=== PATIENT | male | born 1980 | race Caucasian/White ===

== ENCOUNTER 2017-03-17 22:09 | Emergency (ER) | payer BC, OTHER ==
--- NOTE | 2017-03-17 22:34 | EDM.PDOC ---
ED HPI GENERAL MEDICAL PROBLEM - General Chief Complaint: Chest Pain Stated Complaint: PT HAS CHEST PAINS Time Seen by Provider: 03/17/17 22:30 - History of Present Illness INITIAL COMMENTS - FREE TEXT/NARRATIVE: HISTORY AND PHYSICAL: History of present illness: Patient 37-year-old white male presents with a concern of chest pain this is vaguely described he states was some associated shortness of breath this was relatively brief and is resolved he's had this off-and-on for 4 years he denies drug or alcohol abuse Review of systems: As per history of present illness and below otherwise all systems reviewed and negative. Past medical history: As per history of present illness and as reviewed below otherwise noncontributory. Surgical history: As per history of present illness and as reviewed below otherwise noncontributory. Social history: No reported history of drug or alcohol abuse. Family history: As per history of present illness and as reviewed below otherwise noncontributory. Physical exam: HEENT: Atraumatic, normocephalic, pupils reactive, negative for conjunctival pallor or scleral icterus, mucous membranes moist, throat clear, neck supple, nontender, trachea midline. Lungs: Clear to auscultation, breath sounds equal bilaterally, chest nontender. Heart: S1S2, regular, negative for clicks, rubs, or JVD. Abdomen: Soft, nondistended, nontender. Negative for masses or hepatosplenomegaly. Negative for costovertebral tenderness. Pelvis: Stable nontender. Genitourinary: Deferred. Rectal: Deferred. Extremities: Atraumatic, negative for cords or calf pain. Neurovascular unremarkable. Neuro: Awake, alert, oriented. Cranial nerves II through XII unremarkable. Cerebellum unremarkable. Motor and sensory unremarkable throughout. Exam nonfocal. Diagnostics: Chest x-ray EKG pulse oximetry quality assurance monitor Therapeutics: None Impression: #1 atypical chest pain Definitive disposition and diagnosis as appropriate pending reevaluation and review of above. right chest Pain Score (Numeric/FACES): 5 - Related Data Allergies Allergy/AdvReac Type Severity Reaction Status Date / Time No Known Allergies Allergy Verified 03/17/17 22:21 Home Meds: Home Meds Divalproex Sodium [Divalproex Sodium ER] 500 mg PO BEDTIME 03/17/17 [History] OLANZapine [Olanzapine Odt] 10 mg PO BEDTIME 03/17/17 [History] Sertraline HCl 50 mg PO DAILY 03/17/17 [History] Past Medical History - Past Health History Medical/Surgical History: Denies Medical/Surgical History Psychiatric History: Reports: Anxiety, Depression Social & Family History - Family History Family Medical History: Noncontributory - Tobacco Use Smoking Status *Q: Current Every Day Smoker Years of Tobacco use: 19 Packs/Tins Daily: 1 - Alcohol Use Days Per Week of Alcohol Use: 0 - Recreational Drug Use Recreational Drug Use: No ED ROS GENERAL - Review of Systems Review Of Systems: ROS reveals no pertinent complaints other than HPI. ED EXAM, GENERAL - Physical Exam Exam: See Below (See dictated) Course - Vital Signs Last Recorded V/S: Last Vital Signs Temp 36.8 C 03/17/17 22:09 Pulse 91 03/17/17 22:09 Resp 18 03/17/17 22:09 BP 145/88 H 03/17/17 22:09 Pulse Ox 94 L 03/17/17 22:09 - Orders/Labs/Meds Orders: Active Orders 24 hr Category Date Time Status EKG 12 Lead [EKG Documentation Completion] [RC] STAT Care 03/17/17 22:30 Active Chest 1V Frontal [CR] Stat Exams 03/17/17 22:22 Ordered Departure - Departure Time of Disposition: 22:33 Disposition: Home, Self-Care 01 Condition: Good Clinical Impression: Atypical chest pain - Discharge Information Referrals: PCP,None [Primary Care Provider] - Additional Instructions: The following information is given to patients seen in the emergency department who are being discharged to home. This information is to outline your options for follow-up care. We provide all patients seen in our emergency department with a follow-up referral. The need for follow-up, as well as the timing and circumstances, are variable depending upon the specifics of your emergency department visit. If you don't have a primary care physician on staff, we will provide you with a referral. We always advise you to contact your personal physician following an emergency department visit to inform them of the circumstance of the visit and for follow-up with them and/or the need for any referrals to a consulting specialist. The emergency department will also refer you to a specialist when appropriate. This referral assures that you have the opportunity for followup care with a specialist. All of these measure are taken in an effort to provide you with optimal care, which includes your followup. Under all circumstances we always encourage you to contact your private physician who remains a resource for coordinating your care. When calling for followup care, please make the office aware that this follow-up is from your recent emergency room visit. If for any reason you are refused follow-up, please contact the [facility] emergency department at and asked to speak to the emergency department charge nurse. [facility] [address] [place] [id number] Follow primary medical doctor and/or clinic above is discussed return as needed as discussed - My Orders Last 24 Hours: My Active Orders 03/17/17 22:22 Chest 1V Frontal [CR] Stat 03/17/17 22:30 EKG 12 Lead [EKG Documentation Completion] [RC] STAT - Assessment/Plan Last 24 Hours: My Active Orders 03/17/17 22:22 Chest 1V Frontal [CR] Stat 03/17/17 22:30 EKG 12 Lead [EKG Documentation Completion] [RC] STAT
[2017-03-17 23:28] VITALS: BP 124/80
--- NOTE | 2017-03-20 10:42 | CR ---
EXAM DATE: 03/17/17 PATIENT'S AGE: 37 Patient: ZARINA PETTY Facility: [place], [place] Site . Site : 1980 Study: XRay Chest [id number]/10/2017 10:47:39 PM Ordering Physician: Doctor Heller Final Report: HISTORY: Chest pain and shortness of breath. FINDINGS: AP portable chest radiograph demonstrates EKG leads overlying the thorax. The cardiac silhouette is normal. Pulmonary vasculature and shanelle are normal. No consolidation or pleural effusion is seen. Bony structures normal. IMPRESSION: No acute cardiopulmonary disease. Dictated by Ana Gilliland MD @ 03/17/2017 10:57:01 PM Dictated by: Ana Gilliland MD @ 03/17/2017 22:57:05 (Electronic Signature) Report Signed by Proxy. [email or web address]
== END 2017-03-17 23:19 | disposition home or self-care (01) ==
LOC: MW.ED 22:09
DX: R07.89 Other chest pain (principal); F17.210 Nicotine dependence, cigarettes, uncomplicated; F32.9 Major depressive disorder, single episode, unspecified; Z79.899 Other long term (current) drug therapy
CPT/HCPCS: 71010; 71010-26; 93005; 99283; 99285-25

== ENCOUNTER 2017-07-22 17:34 | Emergency (ER) | payer OTHER ==
[2017-07-22] MEDS ORDERED: Ondansetron 4 MG/2 ML SDV IVPUSH ONE (17:58)
[2017-07-22] MEDS ORDERED: Sodium Chloride 0.9% 1,000 ML IV ONE (17:58)
[2017-07-22] MEDS ORDERED: diphenhydrAMINE 50 MG/ML SDV IVPUSH ONE (17:58)
[2017-07-22] MEDS ORDERED: Ketorolac 30 MG/ML SDV IVPUSH ONE (17:58)
[2017-07-22] MEDS ORDERED: Metoclopramide 10 MG/2 ML SDV IV ONE (17:58)
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
[2017-07-22 18:55] LABS: CHLORIDE,CL 104 mmol/L (98-107); SODIUM,NA 139 mmol/L (136-148)
[2017-07-22 19:09] VITALS: BP 149/102
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
== END 2017-07-22 19:40 | disposition home or self-care (01) ==
LOC: MW.ED 17:34
DX: S06.0X9A Concussion with loss of consciousness of unspecified duration, initial encounter (principal); G43.909 Migraine, unspecified, not intractable, without status migrainosus; F32.9 Major depressive disorder, single episode, unspecified; F41.9 Anxiety disorder, unspecified; Z79.899 Other long term (current) drug therapy; F17.210 Nicotine dependence, cigarettes, uncomplicated; V89.2XXA Person injured in unspecified motor-vehicle accident, traffic, initial encounter
CPT/HCPCS: 70450; 80053; 85025; 93005; 96361; 96374; 96375; 99284; J1200; J1885; J2405; J2765; J7040

== ENCOUNTER 2019-03-09 12:12 | Emergency (ER) | payer OTHER ==
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
[2019-03-09] MEDS ORDERED: Ketorolac 60 MG/2 ML SDV IM ONE (13:22)
[2019-03-09 13:59] VITALS: BP 145/90; PULSE 78
== END 2019-03-09 14:06 | disposition home or self-care (01) ==
LOC: MW.ED 12:12
DX: M54.2 Cervicalgia (principal); F41.9 Anxiety disorder, unspecified; F32.9 Major depressive disorder, single episode, unspecified; F17.210 Nicotine dependence, cigarettes, uncomplicated; Z79.899 Other long term (current) drug therapy; V89.2XXA Person injured in unspecified motor-vehicle accident, traffic, initial encounter
CPT/HCPCS: 70450; 72125; 96372; 99284; J1885; 99283

== ENCOUNTER 2019-08-27 22:03 | Emergency (ER) | payer SELFPAY ==
--- NOTE | 2019-08-27 22:33 | EDM.PDOC ---
ED [facility] GENERAL MEDICAL PROBLEM - General Chief Complaint: Chest Pain Stated Complaint: CHEST TIGHTNESS/PAIN/BREATHING Time Seen by Provider: 08/27/19 22:31 Source of Information: Reports: Patient History Limitations: Reports: No Limitations - History of Present Illness INITIAL COMMENTS - FREE TEXT/NARRATIVE: Patient is 39-year-old male presenting with chief complaint of chest pain. Patient states that he has had the chest pain for the past 6 to 8 months. Patient stated he has had episodic chest pain which is been gradually getting increasingly severe. Patient denies these episodes being associated with exertion. Patient states the sharp in the middle of his chest. Sometimes it radiates to the back. Patient denies any palpitations. Patient does report that sometimes the pain is so severe he takes his breath away. Patient came in today because he has a flight to [place] this weekend for work and is concerned about not being able to perform his job. Pmhx: Depression Pshx: None Family Hx: noncontributory Smoking history? 1 pack/day smoker Etoh use? none Drug use? Past history of methamphetamine abuse, clean for 7 years In addition to that documented in the HPI above, the additional ROS was obtained : Constitutional: Denies fevers or chills Eyes: Denies vision changes ENMT: Denies sore throat CV: Per HPI Resp: Denies SOB GI: Denies vomiting or diarrhea : Denies painful urination MSK: Denies recent trauma Skin: Denies new rashes Neuro: Denies new numbness or tingling or weakness Endocrine: Denies unexpected weight loss Heme: Denies bleeding disorders I have reviewed the triage vital signs Const: Well nourished, well developed, appears stated age Eyes: PERRL, no conjunctival injection HENT: NCAT, Neck supple without meningismus CV: RRR, Warm, well-perfused extremities RESP: CTAB, Unlabored respiratory effort GI: soft, non-tender, non-distended, no masses MSK: No gross deformities appreciated Skin: Warm, dry. 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 Sensation and motor function of extremities grossly intact. Psych: Appropriate mood and affect Assessment and plan: Patient is 39-year-old male presenting with a chief complaint of chest pain. Chest pain is acute on chronic. Patient had EKG which demonstrated sinus tachycardia without any ischemic changes. Patient's labs are unremarkable. Considering differential for acute coronary syndrome, pulmonary embolism, pneumothorax. Patient has a heart score of 1. Patient's d-dimer is negative and is low risk for PE therefore further work-up will not be performed. Chest x -ray does not demonstrate any evidence of a pneumothorax. Patient given prescription for pain medications and instruction to follow-up as an outpatient with primary care. All questions addressed and answered. Patient agrees with plan. Chest pain return precautions given. chest Pain Score (Numeric/FACES): 8 - Related Data Allergies Allergy/AdvReac Type Severity Reaction Status Date / Time No Known Allergies Allergy Verified 08/27/19 22:24 Home Meds: Home Meds Divalproex Sodium [Divalproex Sodium ER] 500 mg PO BEDTIME 03/17/17 [History] OLANZapine [Olanzapine Odt] 10 mg PO BEDTIME 03/17/17 [History] Sertraline [Zoloft] 100 mg PO DAILY 07/22/17 [History] Past Medical History - Past Health History Medical/Surgical History: Denies Medical/Surgical History Cardiovascular History: Reports: Other (See Below) Other Cardiovascular History: chest pain Gastrointestinal History: Reports: GERD Musculoskeletal History: Reports: Other (See Below) Neurological History: Reports: None Psychiatric History: Reports: Anxiety, Depression - Past Surgical History Cardiovascular Surgical History: Reports: None GI Surgical History: Reports: None Neurological Surgical History: Reports: Other (See Below) Other Neurological Surgeries/Procedures: "drilled hole in my head to release pressure" Musculoskeletal Surgical History: Reports: Other (See Below) Other Musculoskeletal Surgeries/Procedures:: Left Leg, Foot, LEft knee Social & Family History - Family History Family Medical History: Noncontributory - Tobacco Use Smoking Status *Q: Current Every Day Smoker Years of Tobacco use: 21 Packs/Tins Daily: 1.5 - Caffeine Use Caffeine Use: Reports: Coffee, Soda - Recreational Drug Use Recreational Drug Use: No ED ROS GENERAL - Review of Systems Review Of Systems: See Below ED EXAM, GENERAL - Physical Exam Exam: See Below Course - Vital Signs Last Recorded V/S: Last Vital Signs Temp 36.4 C 08/27/19 22:03 Pulse 103 H 08/27/19 22:21 Resp 17 08/27/19 22:21 BP 146/54 H 08/27/19 22:21 Pulse Ox 96 08/27/19 22:21 - Orders/Labs/Meds Orders: Active Orders 24 hr Category Date Time Status EKG 12 Lead [EKG Documentation Completion] [RC] STAT Care 08/27/19 22:08 Active Chest 1V Frontal [CR] Stat Exams 08/27/19 22:22 Ordered Labs: Laboratory Tests 08/27/19 08/27/19 08/27/19 Range/Units 22:10 22:10 22:10 WBC 8.38 (4.0-11.0) K/uL RBC 5.43 (4.50-5.90) M/uL Hgb 16.3 (13.0-17.0) g/dL Hct 46.9 (38.0-50.0) % MCV 86.4 (80.0-98.0) fL MCH 30.0 (27.0-32.0) pg MCHC 34.8 (31.0-37.0) g/dL RDW Std Deviation 42.2 (28.0-62.0) fl RDW Coeff of Naldo 13 (11.0-15.0) % Plt Count 254 (150-400) K/uL MPV 11.20 (7.40-12.00) fL Neut % (Auto) 50.7 (48.0-80.0) % Lymph % (Auto) 40.9 H (16.0-40.0) % [place] % (Auto) 6.4 (0.0-15.0) % Eos % (Auto) 1.6 (0.0-7.0) % Baso % (Auto) 0.4 (0.0-1.5) % Neut # (Auto) 4.3 (1.4-5.7) K/uL Lymph # (Auto) 3.4 H (0.6-2.4) K/uL [place] # (Auto) 0.5 (0.0-0.8) K/uL Eos # (Auto) 0.1 (0.0-0.7) K/uL Baso # (Auto) 0.0 (0.0-0.1) K/uL Nucleated RBC % 0.0 /100WBC Nucleated RBCs # 0 K/uL D-Dimer, Quantitative 0.33 (0.0-0.50) mg/L FEU Sodium 144 (136-148) mmol/L Potassium 3.7 (3.5-5.1) mmol/L Chloride 106 (98-107) mmol/L Carbon Dioxide 25.8 (21.0-32.0) mmol/L BUN 12 (7.0-18.0) mg/dL Creatinine 1.0 (0.8-1.3) mg/dL Est Cr Clr Drug Dosing 105.63 mL/min Estimated GFR (MDRD) > 60.0 ml/min Glucose 87 (74-106) mg/dL Calcium 8.9 (8.5-10.1) mg/dL Total Bilirubin 0.3 (0.2-1.0) mg/dL AST 36 (15-37) IU/L ALT 127 H (14-63) IU/L Alkaline Phosphatase 110 (46-116) U/L Troponin I < 0.050 (0.000-0.056) ng/mL Total Protein 7.6 (6.4-8.2) g/dL Albumin 4.3 (3.4-5.0) g/dL Globulin 3.3 (2.6-4.0) g/dL Albumin/Globulin Ratio 1.3 (0.9-1.6) Departure - Departure Time of Disposition: 23:07 Disposition: Home, Self-Care 01 Clinical Impression: Atypical chest pain Instructions: Nonspecific Chest Pain, Adult Referrals: PCP,None [Primary Care Provider] - Forms: ED Department Discharge Additional Instructions: The following information is given to patients seen in the emergency department who are being discharged to home. This information is to outline your options for follow-up care. We provide all patients seen in our emergency department with a follow-up referral. The need for follow-up, as well as the timing and circumstances, are variable depending upon the specifics of your emergency department visit. If you don't have a primary care physician on staff, we will provide you with a referral. We always advise you to contact your personal physician following an emergency department visit to inform them of the circumstance of the visit and for follow-up with them and/or the need for any referrals to a consulting specialist. The emergency department will also refer you to a specialist when appropriate. This referral assures that you have the opportunity for follow-up care with a specialist. All of these measure are taken in an effort to provide you with optimal care, which includes your follow-up. Under all circumstances we always encourage you to contact your private physician who remains a resource for coordinating your care. When calling for follow-up care, please make the office aware that this follow-up is from your recent emergency room visit. If for any reason you are refused follow-up, please contact the [facility] Emergency Department at and asked to speak to the emergency department charge nurse. Sepsis Event Note - Evaluation Sepsis Screening Result: No Definite Risk - Focused Exam Vital Signs: Vital Signs Temp Pulse Resp BP Pulse Ox 08/27/19 22:21 103 H 17 146/54 H 96 08/27/19 22:03 36.4 C 113 H 20 143/110 H 97 Date Exam was Performed: 08/27/19 Time Exam was Performed: 23:10 - My Orders Last 24 Hours: My Active Orders 08/27/19 22:08 EKG 12 Lead [EKG Documentation Completion] [RC] STAT 08/27/19 22:22 Chest 1V Frontal [CR] Stat - Assessment/Plan Last 24 Hours: My Active Orders 08/27/19 22:08 EKG 12 Lead [EKG Documentation Completion] [RC] STAT 08/27/19 22:22 Chest 1V Frontal [CR] Stat
[2019-08-27 22:59] LABS: BLOOD UREA NITROGEN,BUN 12 mg/dL (7.0-18.0); CARBON DIOXIDE,CO2 25.8 mmol/L (21.0-32.0); CHLORIDE,CL 106 mmol/L (98-107); GLUCOSE RANDOM 87 mg/dL (74-106); POTASSIUM,K 3.7 mmol/L (3.5-5.1); SODIUM,NA 144 mmol/L (136-148)
--- NOTE | 2019-08-27 23:19 | CR ---
INDICATION: Chest pain TECHNIQUE: Chest 1 view. COMPARISON: 05/17/16 FINDINGS: Cardiovascular and mediastinum: Heart size and vasculature are normal in caliber and appearance. Mediastinum is within normal limits. Lungs and pleural space: Lungs are clear. No sign of infiltrate or mass. No sign of pleural effusion. No pneumothorax. Bones and soft tissues: No significant findings. IMPRESSION: Unremarkable chest. Dictated by: Jb Lucas MD @ 08/27/2019 23:18:15 (Electronically Signed)
[2019-08-27 23:42] VITALS: BP 145/74; PULSE 88
== END 2019-08-27 23:23 | disposition home or self-care (01) ==
LOC: MW.ED 22:03
DX: R07.89 Other chest pain (principal); F17.210 Nicotine dependence, cigarettes, uncomplicated; F41.9 Anxiety disorder, unspecified; F32.9 Major depressive disorder, single episode, unspecified; Z79.899 Other long term (current) drug therapy
CPT/HCPCS: 36415; 71045; 71045-26; 80053; 84484; 85025; 85379; 93005; 99284; 99285-25